=== PATIENT | female | born 1990 | race Caucasian/White ===

== ENCOUNTER 2016-07-19 00:25 | Inpatient (IN) | payer BC, OTHER ==
[2016-07-19] MEDS ORDERED: OXYTOCIN 10 UNITS/ML VIAL ONE (00:33)
[2016-07-19] MEDS ORDERED: PUMP TUBING ONE (00:34)
[2016-07-19] MEDS ORDERED: LIDOCAINE Viscous 2% 15 ML UDCUP ONE (00:34)
[2016-07-19] MEDS ORDERED: MINERAL OIL 25 ML BOT ONE (00:34)
[2016-07-19] MEDS ORDERED: OXYTOCIN IN LR 0 ML IV ONE (00:34)
[2016-07-19] MEDS ORDERED: IV START KIT ONE (00:34)
[2016-07-19] MEDS ORDERED: LACTATED RINGERS 1,000 ML ONE (00:34)
[2016-07-19] MEDS ORDERED: LIDOCAINE 1% (PRES FREE) 30 ML VIAL ONE (00:34)
[2016-07-19] MEDS ORDERED: OXYTOCIN 10 UNITS/ML VIAL IM ONE (01:09)
[2016-07-19] MEDS ORDERED: LIDOCAINE 1% (PRES FREE) 30 ML VIAL SUB-Q ONE (01:10)
[2016-07-19] MEDS ORDERED: BENZOCAINE/MENTHOL 60 APPLIC/BOT TP PRN (01:44)
[2016-07-19] MEDS ORDERED: DOCUSATE SODIUM 100 MG CAPSULE PO PRN (01:44)
[2016-07-19] MEDS ORDERED: OXYCODONE HCL 5 MG TABLET PO PRN (01:44)
[2016-07-19] MEDS ORDERED: CALCIUM CARBONATE 500 MG TAB.CHEW PO PRN (01:44)
[2016-07-19] MEDS ORDERED: LANOLIN 50 APPLIC/7G TUBE TP PRN (01:44)
[2016-07-19] MEDS ORDERED: ACETAMINOPHEN 325 MG TABLET PO PRN (01:44)
--- NOTE | 2016-07-19 01:47 | PCMDEL ---
Delivery Note - Labor 1st stage (hr/min):: 15 hours 2nd stage (hr/min):: 10 minutes 3rd stage (hr/min):: 3 minutes Total (hr/min):: 15:12 Pushed (hr/min):: 2 minutes - Delivery Delivery (Date): 07/19/16 Delivery (Time): 00:55 Gender: Male Presentation: Cephalic Position: OA Umbilical Cord: 3 Vessel Delayed Cord Clamping:: 2-3 min Placenta:: intact EBL:: 300 Perineum:: 2nd degree perineal laceration Suture:: 4-0 vicryl suture repaired in the usual fashion Anesthesia/Meds:: local w/ zylocaine Length ROM:: 5 minutes
[2016-07-19] MEDS: IBUPROFEN 800 MG TABLET PO PRN ×3 (02:07→17:03)
[2016-07-19] MEDS: HYDROCODONE/ACETAMINOPHEN 5/325MG TABLET PO PRN ×4 (02:07→18:25)
[2016-07-19 02:23] VITALS: BMI 30.7
--- NOTE | 2016-07-19 11:35 | PDOC44 ---
- Subjective Day: 1 Reports Flatus, Reports Pain Tolerable, Reports , Reports Lochia Moderate, Reports Tolerating Regular Diet, Denies Nausea, Denies Vomiting - Objective Temp Pulse Resp BP Pulse Ox 98.2 F 73 16 111/72 07/19/16 08:25 07/19/16 08:25 07/19/16 08:25 07/19/16 08:25 Current Medications Generic Name Dose Route Start Last Admin Trade Name Freq PRN Reason Stop Dose Admin Acetaminophen 325 mg 07/19/16 01:44 Tylenol PO Q4H PRN Pain (Mild) Acetaminophen/Hydrocodone Bitart 1 - 2 tab 07/19/16 01:44 07/19/16 08:46 Claunch 5/325 PO 2 tab Q4H PRN Administration Pain (Moderate) Benzocaine/Menthol 1 applic 07/19/16 01:44 07/19/16 02:07 Dermoplast TP 1 bot PRN PRN Administration Patient Comfort Calcium Carbonate/Glycine 500 mg 07/19/16 01:44 Tums PO BID PRN Indigestion Docusate Sodium 100 mg 07/19/16 01:44 07/19/16 08:46 Colace PO 100 mg DAILY PRN Administration Comfort Emollient Ointment 1 applic 07/19/16 01:44 [id number] TP PRN PRN sore nipples Ibuprofen 800 mg 07/19/16 01:44 07/19/16 08:46 Motrin PO 800 mg Q6H PRN Administration Pain (Mild) Oxycodone HCl 5 - 10 mg 07/19/16 01:44 07/19/16 04:45 Roxicodone PO 5 mg Q3H PRN Administration Pain (Severe) Sodium Chloride 10 ml 07/19/16 01:44 Normal Saline 10ml Flush IV PRN PRN IV Flush - Physical Exam General: Afebrile, No Acute Distress Psych/Mental Status: Mood/Affect Appropriate, Bonding Well Neurological: Alert, Oriented x 4 Lungs: Clear to Auscultation Bilaterally Cardiovascular: Regular Rate and Rhythm Breast: Nipples Intact Fundus: Firm, Midline Extremities: Full ROM, No Edema, No Tenderness Skin: Normal Color, Warm, Dry, Intact, No Rash Wound [employer]: Dressing Clean/Dry/Intact, Well Approximated - Problems:Assessment/Plan (1) normal course Status: Acute Assessment/Plan: Pt doing well. No concerns at this time. 1. Routine care. 2. Contraception: IUD and then vasectomy 3. Feeding: 4. Disposition: Home Disposition: Stable, Anticipate DC Home Tomorrow
[2016-07-20] MEDS: IBUPROFEN 800 MG TABLET PO PRN (02:16)
[2016-07-20] MEDS: HYDROCODONE/ACETAMINOPHEN 5/325MG TABLET PO PRN (04:45)
[2016-07-20 06:49] LABS: HEMATOCRIT 34.3 % (37.0-47.0); HEMOGLOBIN 11.2 gm/l (12.0-16.0)
[2016-07-20 08:03] VITALS: BP 119/79
--- NOTE | 2016-07-20 08:12 | PDOC39B ---
Hospital Course: ADMIT DATE: 07/19/16 DISCHARGE DATE: 07/20/16 ADMISSION DIAGNOSES: active labor PROCEDURES: , 2nd degree lac repair HISTORY OF PRESENT ILLNESS: 25 year old G3 T1 L1 at 39 weeks 4 days presenting with active labor HOSPITAL COURSE: The patient delivered without complications. By day of discharge the patient is ambulating, eating, voiding, and passing flatus without difficulty. Pain is controlled and lochia is appropriate. She is [] - Physical Exam Vital Signs: Temp Pulse Resp BP Pulse Ox 98.1 F 69 16 119/79 07/20/16 07:58 07/20/16 07:58 07/20/16 07:58 07/20/16 07:58 General: Afebrile, No Acute Distress Neurological: Alert, Oriented x 4 Lungs: Clear to Auscultation Bilaterally Cardiovascular: Regular Rate and Rhythm Fundus: Firm, Midline Extremities: Full ROM, No Edema Skin: Normal Color, Warm, Dry, Intact, No Rash Wound: Dressing Clean/Dry/Intact, Well Approximated - Discharge Diagnosis (1) normal course Status: Acute Assessment/Plan: Pt doing well. No concerns at this time. 1. Routine care. 2. Contraception: IUD and then vasectomy 3. Feeding: 4. Disposition: Home 5. d/c 07/20/16 - Discharge Plan Condition: Stable Disposition: Home Additional Instructions: Maintain pelvic rest. Report if you have heavy bleeding, worsening pain, or a temperature over 100. Prescriptions: Docusate Sodium [COLACE 100 MG CAPSULE (SHF)] 100 mg PO BID PRN #30 cap PRN Reason: Constipation Ibuprofen [Motrin] 800 mg PO Q6H PRN #60 tablet PRN Reason: Pain Follow-Up: Paloma Esqueda MD [Staff Physician] - In 6 weeks
== END 2016-07-20 11:15 | disposition home or self-care (01) | DRG 775 ==
LOC: FBCOUT 00:25 → FBC 00:25 → FBCOUT 00:30 → FBC 00:30
PROVIDERS: ADMIT Family Medicine; ATTEND Family Medicine
PROC: 0KQM0ZZ Repair Perineum Muscle, Open Approach (ICD-10-PCS; principal; 2016-07-19)
PROC: 10E0XZZ Delivery of Products of Conception, External Approach (ICD-10-PCS; 2016-07-19)
DX: O70.1 Second degree perineal laceration during delivery (principal); Z37.0 Single live birth; Z3A.39 39 weeks gestation of pregnancy